=== PATIENT | male | born 1980 | race Caucasian/White ===

== ENCOUNTER 2024-02-21 00:46 | Inpatient (IN) | payer OTHER ==
[2024-02-21] MEDS ORDERED: Ondansetron PF 4 MG/2 ML Vial IVP PRN (02:28)
[2024-02-21 02:45] VITALS: BMI 29.4
[2024-02-21 03:58] LABS: #Basophils 0.04 10x3/uL (0.0-0.2); %Basophils 0.4 % (0.0-1.0); %Eosinophils 0.5 % (0.0-10.0); %Lymphocytes 14.1 % (21.0-51.0); %Monocytes 11.9 % (0.0-10.0); %Neutrophils 72.8 % (42.0-75.0); Hematocrit 42.1 % (42.0-52.0); Hemoglobin 13.5 g/dL (14.0-18.0); Mean Corpuscular HGB CONC 32.1 g/dL (32.0-36.0); Mean Corpuscular Hemoglobin 28.6 pg (27.0-31.0); Mean Corpuscular Volume 89.2 fL (78.0-98.0); Mean Platelet Volume 10.5 fL (7.4-10.4); Platelet Count 189 10x3/uL (130-400); RBC Distribution Width 14.6 % (11.5-14.5); Red Blood Cell (RBC) Count 4.72 mill/uL (4.70-6.10)
[2024-02-21 04:19] LABS: Troponin I 0.057 ng/mL (< 0.028)
[2024-02-21 04:20] LABS: Anion Gap 14 mmol/L (10-20); BUN (Urea Nitrogen) 30 mg/dL (8.9-20.6); Calc. Creatinine Clearance 88 mL/min (70-130); Calcium 8.3 mg/dL (7.8-10.44); Carbon Dioxide 23 mmol/L (22-29); Chloride 107 mmol/L (98-107); Estimated GFR 62; Glucose 109 mg/dL (70-105); Magnesium 1.9 mg/dL (1.6-2.6); Potassium 4.4 mmol/L (3.5-5.1); Sodium 140 mmol/L (136-145)
[2024-02-21] MEDS: Furosemide 20 MG (2 mL) VIAL SLOW IVP SCH (06:45)
[2024-02-21] MEDS: Acetaminophen 325 MG TAB PO PRN (09:10)
[2024-02-21] MEDS: Famotidine 20 MG TAB PO SCH (09:10)
[2024-02-21] MEDS: Enoxaparin 100 MG (1 mL) SYRINGE SC SCH (11:31)
[2024-02-21] MEDS: HYDROcodone/Acetaminophen 5/325 mg Tablet PO PRN (17:42)
[2024-02-21] MEDS: Empagliflozin 10 MG TAB PO SCH (17:43)
[2024-02-21] MEDS: Magnesium Sulfate In Water 4 GM in Premix 1 BAG IVPB SCH (17:43)
[2024-02-21 18:45] LABS: Amphetamine Detected (NotDetected); Barbiturates Screen Not Detected (NotDetected); Benzodiazepine Screen Not Detected (NotDetected); Cocaine Metabolite Screen Not Detected (NotDetected); Methadone Not Detected (NotDetected); Methamphetamine Detected (NotDetected); Opiate Screen Not Detected (NotDetected); Oxycodone Screen Not Detected (NotDetected); Phencyclidine (PCP) Not Detected (NotDetected); THC/Cannabinoid Screen Not Detected (NotDetected); Tricyclic Screen Not Detected (NotDetected)
[2024-02-21] MEDS: Sacubitril 24MG/Valsartan 26 MG TAB PO SCH (20:54)
[2024-02-21] MEDS: Colchicine 0.6 MG TAB PO SCH (22:21)
[2024-02-22 01:43] LABS: #Basophils 0.05 10x3/uL (0.0-0.2); %Basophils 0.5 % (0.0-1.0); %Eosinophils 2.4 % (0.0-10.0); %Lymphocytes 10.2 % (21.0-51.0); %Monocytes 12.8 % (0.0-10.0); %Neutrophils 73.9 % (42.0-75.0); Hematocrit 44.8 % (42.0-52.0); Hemoglobin 14.5 g/dL (14.0-18.0); Mean Corpuscular HGB CONC 32.4 g/dL (32.0-36.0); Mean Corpuscular Hemoglobin 29.2 pg (27.0-31.0); Mean Corpuscular Volume 90.3 fL (78.0-98.0); Mean Platelet Volume 9.7 fL (7.4-10.4); Platelet Count 213 10x3/uL (130-400); RBC Distribution Width 14.6 % (11.5-14.5); Red Blood Cell (RBC) Count 4.96 mill/uL (4.70-6.10)
[2024-02-22 02:05] LABS: ALT (SGPT) 40 U/L (8-55); AST (SGOT) 33 U/L (5-34); Albumin 2.9 g/dL (3.5-5.0); Alkaline Phosphatase 69 U/L (40-110); Anion Gap 16 mmol/L (10-20); BUN (Urea Nitrogen) 28 mg/dL (8.9-20.6); Bilirubin, Total 2.1 mg/dL (0.2-1.2); Calc. Creatinine Clearance 75 mL/min (70-130); Calcium 8.7 mg/dL (7.8-10.44); Carbon Dioxide 28 mmol/L (22-29); Chloride 102 mmol/L (98-107); Estimated GFR 54; Globulin 3.9 g/dL (2.4-3.5); Glucose 108 mg/dL (70-105); Magnesium 2.2 mg/dL (1.6-2.6); Potassium 3.7 mmol/L (3.5-5.1); Protein, Total 6.8 g/dL (6.0-8.3); Sodium 142 mmol/L (136-145)
[2024-02-22] MEDS: Metoprolol Tartrate 5 MG (5 mL) VIAL IVP SCH (02:06)
[2024-02-22] MEDS: Potassium Chloride 20 MEQ TAB PO SCH (05:09)
[2024-02-22] MEDS: Allopurinol 100 MG TAB PO SCH (08:38)
[2024-02-22] MEDS: Empagliflozin 10 MG TAB PO SCH (08:38)
[2024-02-22] MEDS: Colchicine 0.6 MG TAB PO SCH (11:17)
[2024-02-22 12:00] VITALS: BP 131/92; TEMP 98.8
[2024-02-22] MEDS ORDERED: Carvedilol 3.125 MG TAB PO SCH (17:00)
[2024-02-22] MEDS ORDERED: Colchicine 0.6 MG TAB PO SCH (21:00)
[2024-02-22] MEDS ORDERED: Sacubitril 49 MG/Valsartan 51 MG TABLET PO SCH (21:00)
[2024-02-23] MEDS ORDERED: Apixaban 5 MG TAB PO SCH (09:00)
[2024-03-01] MEDS ORDERED: Apixaban 5 MG TAB PO SCH (09:00)
== END 2024-02-22 16:22 | disposition left against medical advice (07) | DRG 175 ==
LOC: PCU 02:25
PROVIDERS: ADMIT Internal Medicine; ATTEND Internal Medicine
DX: I26.93 Single subsegmental thrombotic pulmonary embolism without acute cor pulmonale (principal); I50.23 Acute on chronic systolic (congestive) heart failure; J96.01 Acute respiratory failure with hypoxia; N17.9 Acute kidney failure, unspecified; Z88.0 Allergy status to penicillin; Z79.899 Other long term (current) drug therapy; M1A.9XX0 Chronic gout, unspecified, without tophus (tophi)
CPT/HCPCS: 36415; 80048; 80306; 83735; 83880; 84443; 84484; 85025; 93005; 93010; 93306; 93970; 97139; J1650; J1940; J3475